=== PATIENT | male | born 1990 | race African-American/Black ===

== ENCOUNTER 2019-02-26 10:57 | Emergency (ER) | payer BC ==
[~2019-02-26] VITALS: Ht 185.4 cm; Wt 95.5 kg
[2019-02-26] MEDS ORDERED: IBUPROFEN 600 MG TABLET PO ONE (12:15)
[2019-02-26 14:00] VITALS: BP 125/69
== END 2019-02-26 14:00 | disposition home or self-care (01) ==
LOC: EMS 10:57
DX: S93.401A Sprain of unspecified ligament of right ankle, initial encounter (principal); M25.561 Pain in right knee; X50.1XXA Overexertion from prolonged static or awkward postures, initial encounter; Y93.67 Activity, basketball; Y92.89 Other specified places as the place of occurrence of the external cause; Y99.8 Other external cause status
CPT/HCPCS: 29505